=== PATIENT | female | born 1960 | race Hispanic/Latino ===

== ENCOUNTER 2020-05-20 07:22 | Day surgery (SDC) | payer BC ==
[~2020-05-20 07:22] MED LIST: ACCOLATE10 MG PO; ALPRAZOLAM0.5 MG PO; BENAZEPRIL5 MG PO; CELEBREX100 MG PO; CIPRO500 MG OR; CIPRO500 MG PO; CIPROFLOXACN500 MG PO; DARVON-N100 MG OR; DICLOFENAC50 MG PO; FAMOTIDINE20 M3 PO; FLAGYL500 MG OR; FLEXERIL OR; FLEXERIL PO; FOLIC ACID1 MG PO; LISINOP/HCTZ1 TA1 PO; LORTAB 7.5 OR; LOTENSIN HCT1 TA1 PO; MEDDOSEPAK PO; MELOXICAM7.5 MG PO; METRONIDAZOL500 MG PO; NAPROSYN500 MG PO; NAPROXEN500 MG PO; NORCO1 TA2 PO; OMEPRAZOLE10 MG PO; PAROXETINE20 M1 PO; RANITIDINE150 M1 OR; TRAMADOL HCL50 MG PO; TYLENOL500 MG PO; ZANTAC 150 PO; ZANTAC150 MG PO
[2020-05-20 09:44] VITALS: BP 150/85
[2020-07-14] MEDS ORDERED: TRAMADOL HCL50 MG PO (12:05)
== END 2020-05-20 09:56 | disposition home or self-care (01) | DRG 552 ==
LOC: ORM 07:22
PROVIDERS: ATTEND Anesthesiology Pain Medicine
DX: M46.1 Sacroiliitis, not elsewhere classified (principal); Z01.84 Encounter for antibody response examination

== ENCOUNTER 2022-03-15 20:40 | Emergency (ER) | payer SELFPAY ==
[~2022-03-15] VITALS: Ht 134.6 cm; Wt 61.3 kg
[2022-03-15] VITALS (11 sets, daily range): BP systolic 112–147; BP diastolic 70–107
[~2022-03-15 20:40] MED LIST changes: +LISINOPRIL20 M1 PO
[2022-03-15 21:23] LABS: IMMATURE GRANULOCYTES 0.1 % (0.0-5.0); MEAN CORPUSCULAR HGB 32.2 pG CALC (26.0-32.0); MEAN CORPUSCULAR HGB CONC 32.7 g/dL CAL (32.0-36.0); NEUT# 5.27 thou/uL (2.00-7.15); RED BLOOD COUNT 4.53 mill/uL (4.20-5.60); RED CELL DISTRI WIDTH 12.5 % (11.5-15.5)
[2022-03-15 21:26] LABS: HEMATOCRIT 44.6 % (37.0-47.0); HEMOGLOBIN 14.6 g/dl (12.0-16.0); MEAN CELL VOLUME 98.5 fL CALC (80.0-100.0)
[2022-03-15 21:40] LABS: ALBUMIN 4.6 g/dL (3.2-5.0); ALKALINE PHOSPHATASE 145 u/l (38-126); ANION GAP 14 (6-22 (CALC)); BILIRUBIN, TOTAL 0.2 mg/dL (0.0-1.4); BUN 9 mg/dL (7-17); BUN/CREATININE RATIO 17 (12-20 (CALC)); CARBON DIOXIDE 24 mmol/l (22-30); CHLORIDE 104 mmol/l (95-108); CREATININE 0.6 mg/dL (0.5-1.0); ETHYL ALCOHOL 100 mg/dl (0-30); GFR FOR AFR.AMER. > 60 ML/MIN (>=60 (CALC)); GFR OTHER RACES > 60 ML/MIN (>=60 (CALC)); POTASSIUM 3.5 mmol/l (3.5-5.1); SODIUM 139 mmol/l (137-146)
[2022-03-15 21:41] LABS: SGOT/AST 76 u/l (14-36); TOTAL PROTEIN 8.1 g/dL (6.3-8.2)
[2022-03-15 22:49] LABS: URINE BILIRUBIN - DIPSTICK NEGATIVE (NEGATIVE); URINE BLOOD DIPSTICK SMALL (NEGATIVE); URINE COLOR YELLOW; URINE GLUCOSE - DIPSTICK NEGATIVE (NEGATIVE); URINE KETONE NEGATIVE (NEGATIVE); URINE LEUK ESTERASE NEGATIVE (NEGATIVE); URINE PH 6.5 (4.5-8.0); URINE PROTEIN - DIPSTICK NEGATIVE (NEG-TRACE); URINE UROBILINOGEN - DIPSTICK 0.2 E.U./dL (0.2)
[2022-03-15 22:50] LABS: URINE NITRITE - DIPSTICK NEGATIVE (Negative)
[2022-03-15 22:51] LABS: URINE SQUAMOUS EPITHELIAL CELL FEW EPI/hpf (0-FEW); URINE WBC 0-2 WBC/hpf (0-5)
[2022-03-15] MEDS ORDERED: MIRALAX17 GM PO (23:20)
[2022-03-15] MEDS ORDERED: TORADOL PO (23:20)
== END 2022-03-15 23:49 | disposition home or self-care (01) | DRG 392 ==
LOC: ED 20:40
PROVIDERS: Family Medicine
DX: R10.32 Left lower quadrant pain (principal); K43.9 Ventral hernia without obstruction or gangrene; F10.129 Alcohol abuse with intoxication, unspecified; Y90.5 Blood alcohol level of 100-119 mg/100 ml
CPT/HCPCS: Q9967